=== PATIENT | male | born 1950 | race Caucasian/White ===

== ENCOUNTER 2017-10-31 08:54 | Outpatient (CLI) | payer MEDICARE, OTHER ==
[2017-10-31 09:37] LABS: eGFR (African) > 60; eGFR (Non-African) 58
== END 2017-10-31 09:03 ==
LOC: LAB 08:54
PROVIDERS: ATTEND Family Medicine
DX: E11.9 Type 2 diabetes mellitus without complications (principal)
CPT/HCPCS: 36415; 80053; 80061; 83036

== ENCOUNTER 2019-05-07 09:00 | Outpatient (CLI) | payer MEDICARE, OTHER | END 2019-05-07 09:05 | disposition home or self-care (01) | LOC: LAB 09:00 | PROVIDERS: ATTEND Family Medicine | DX: E11.9 Type 2 diabetes mellitus without complications (principal) | CPT/HCPCS: 36415; 83036 ==